=== PATIENT | female | born 1980 | race Caucasian/White ===

== ENCOUNTER 2016-11-16 21:21 | Inpatient (IN) | payer MEDICAID, OTHER ==
[~2016-11-16] VITALS: Ht 160 cm; Wt 65.5 kg
[~2016-11-16 21:21] MED LIST: CEPH-443 PO; FAMO-96 PO; FERR324T4 PO; FERR325C PO; OMEP20CA9 PO
[2016-11-16 21:23] VITALS: Ht 160 cm; Wt 65.5 kg
[2016-11-16] MEDS ORDERED: ONDANSETRON (ODT) 4 MG TAB ODT STA (22:22)
--- NOTE | 2016-11-16 22:26 | ERD ---
ER Documentation Chief Complaint Date/Time DATE: 11/16/16 TIME: 22:24 Chief Complaint ABD PAIN SINCE LAST NIGHT WITH NAUSEA HPI 36-year-old female presented emergency department for abdominal pain that started last night. Nauseous but no vomiting. Last bowel movement was yesterday and it was normal. Also reports generalized weakness. Last menstrual period: October 09, 2016. A0 Denies headache, loss of consciousness, dizziness, blurry vision, changes in vision, photophobia, facial pain, ear pain, throat pain, difficulty swallowing, neck pain, shoulder pain, chest pain, cough, hemoptysis, loss of appetite, nausea, vomiting, hematochezia, diarrhea, constipation, urinary symptoms, hematuria, , the possibility of being , bladder and bowel incontinences, extremity weakness, extremity tenderness, numbness or tingling sensation, difficulty walking, recent travel, recent exposure to illness, recent antibiotic use in the last 3 months, fever, chills. No known drug allergies. No past medical history. Not taking any prescription and medications at home. Works at [employer]. Denies smoking, use of alcohol, use of illegal drugs. ROS All systems reviewed and are negative except as per history of present illness. Medications Home Meds Active Scripts Ferrous Sulfate (Ferrous Sulfate) 324 Mg Tablet., 324 MG PO DAILY, #90 Prov:STEPHON PEREIRA PA-C 03/03/16 Cephalexin* (Keflex*) 500 Mg Capsule, 500 MG PO BID for 5 Days, CAP Prov:STEPHON PEREIRA PA-C 03/03/16 Omeprazole* (Prilosec*) 20 Mg Capsule., 20 MG PO BID for 30 Days, CAP Prov:LEXIE OSEGUERA NP 07/03/15 Famotidine* (Pepcid*) 20 Mg Tablet, 20 MG PO BID for 4 Days, TAB Prov:LEXIE OSEGUERA NP 07/03/15 Ferrous Sulfate (Iron) 325 Mg Capsr, 325 MG PO TID for 30 Days Prov:LEXIE OSEGUERA NP 07/03/15 Allergies Allergies: Coded Allergies: No Known Allergy (Unverified , 03/03/16) PMhx/Soc History of Surgery: No Anesthesia Reaction: No Hx Neurological Disorder: No Hx Respiratory Disorders: No Hx Cardiac Disorders: No Hx Psychiatric Problems: No Hx Alcohol Use: No Hx Substance Use: No Hx Tobacco Use: No Smoking Status: Never smoker Physical Exam Vitals Vital Signs Date Time Temp Pulse Resp B/P Pulse Ox O2 Delivery O2 Flow Rate FiO2 11/16/16 21:23 98.8 98 18 148/72 98 Physical Exam CONSTITUTIONAL: Well-appearing; well-nourished; in no apparent distress. HEAD: Normocephalic; atraumatic. EYES: Conjunctiva clear, sclera non-icteric, EOM intact. PERRL Ears: Hearing intact. EACs clear, TMs non-bulging, non-inflamed, translucent & mobile, ossicles normal appearance, No obstructions, no erythema, no discharges Nose: No obstructions. No polyps. No external lesions. Mucosa non-inflamed. No external lesions, septum and turbinates normal. No rhinorrhea. No discharges. Frontal sinus is non-tender to palpation. Maxillary sinus is non-tender to palpation. MOUTH: Moist mucous membranes, no lesion, no obstructions, no vesicles, no thrush, patent airway Throat: Uvula in midline. Right tonsil is +1 with no erythema, no exudate. Left tonsil is +1 with no erythema, no exudate. Tolerating secretions well. Good gag reflex. Patent airway. Neck: Supple, without lesions, bruits, or adenopathy. No mass. Thyroid non- enlarged and non-tender to palpation. CHEST: Symmetrical chest. Respirations even and not labored. No retractions noted. CARDIOVASCULAR: Normal S1, S2. RRR. No murmurs, gallops. RESPIRATORY: Normal chest excursion with respiration; breath sounds clear and equal bilaterally; no wheezes, rhonchi, or rales. Breathing even and unlabored. Speaking in clear, full, and complete sentences w/ ease. ABDOMEN: Normal bowel sounds normal. Soft, round, non-distended, non-guarding, no tenderness, no rebound, no organomegaly, no masses, no pulsating abdominal mass. No hernia. No peritoneal signs. : No CVA tenderness. Pelvic area tenderness on palpation. BACK: Symmetrical shoulder. Spine is midline without deformity, tenderness. No evidence of trauma or deformity. PELVIS: Stable pelvis. No evidence of trauma or deformity. MUSCULOSKELETAL: Normal gait and station. No misalignment, asymmetry, crepitation, defects, tenderness, masses, effusions, decreased range of motion, instability, atrophy or abnormal strength or tone in the head, neck, spine, ribs , pelvis or extremities. No calf tenderness. NEUROVASCULAR: Distal pulses are present. Pedal pulse are present, equal, and normal. Capillary refills are < 2 seconds. NEUROLOGIC: Alert and oriented x4. Speaks full and clear sentences. Cranial Nerves II-XII normal. Sensation to pain, touch, and proprioception normal. Grossly unremarkable. No neurologic deficits. Romberg test is negative. PSYCHOLOGICAL: The patients mood and manner are appropriate. No hallucinations , delusions. Not SI. Not HI. Has the capacity to decide for self SKIN: Skin appears pale for age and ethnicity; warm; dry; good turgor; no apparent lesions or exudates. No rashes, hives, discoloration. Intact. No signs of dehydration. No skin tenting. Result Diagram: 11/16/16223911/16/162239 Results 24 hrs Laboratory Tests Test 11/16/16 22:40 White Blood Count 7.910^3/ul Red Blood Count 4.0310^6/ul Hemoglobin 6.7g/dl Hematocrit 26.0% Mean Corpuscular Volume 64.5fl Mean Corpuscular Hemoglobin 16.6pg Mean Corpuscular Hemoglobin Concent 25.8g/dl Red Cell Distribution Width 19.2% Platelet Count 20162^3/UL Mean Platelet Volume 9.6fl Neutrophils % 48.4% Lymphocytes % 39.2% Monocytes % 8.5% Eosinophils % 3.2% Basophils % 0.4% Nucleated Red Blood Cells % 0.0/100WBC Neutrophils # 3.810^3/ul Lymphocytes # 3.110^3/ul Monocytes # 0.710^3/ul Eosinophils # 0.310^3/ul Basophils # 0.010^3/ul Nucleated Red Blood Cells # 0.010^3/ul Urine Color STRAW Urine Clarity CLEAR Urine pH 7.0 Urine Specific [place] 1.013 Urine Ketones NEGATIVEmg/dL Urine Nitrite NEGATIVEmg/dL Urine Bilirubin NEGATIVEmg/dL Urine Urobilinogen NEGATIVEmg/dL Urine Leukocyte Esterase NEGATIVELeu/ul Urine Microscopic RBC 0/HPF Urine Microscopic WBC 0/HPF Urine Hemoglobin 1+mg/dL Urine Glucose NEGATIVEmg/dL Urine Total Protein NEGATIVEmg/dl Sodium Level 143mmol/L Potassium Level 3.6mmol/L Chloride Level 102mmol/L Carbon Dioxide Level 25mmol/L Anion Gap 20 Blood Urea Nitrogen 9mg/dl Creatinine 0.54mg/dl Glucose Level 86mg/dl Calcium Level 9.7mg/dl Total Bilirubin 0.1mg/dl Direct Bilirubin 0.00mg/dl Indirect Bilirubin 0.1mg/dl Aspartate Amino Transf (AST/SGOT) 25IU/L Alanine Aminotransferase (ALT/SGPT) 25IU/L Alkaline Phosphatase 51IU/L Total Protein 8.5g/dl Albumin 4.8g/dl Globulin 3.70g/dl Albumin/Globulin Ratio 1.29 Amylase Level 87U/L Lipase 99U/L Serum HCG, Qualitative NEGATIVE Current Medications Medications (Trade) Dose Ordered Sig/Jorgito Route PRN Reason Start Time Stop Time Status Last Admin Dose Admin Ondansetron HCl (Zofran Odt) 4 mg ONCE STAT ODT 11/16/16 22:22 11/16/16 22:25 DC 11/16/16 22:44 Procedures/MDM Examination: Please see physical examination. Disease process, medical treatment was explained to the patient and family member. They verbalized understanding and agreed with the diagnostic tests, medical treatment, and follow-up care. Radiology: Pelvic ultrasound Impression: Unremarkable pelvic ultrasound. Blood works: Hemoglobin of 6.7 and hematocrit of 26.0. POC urine : Negative. Urinalysis: Reviewed. Culture urine: Awaiting for results. Treatment: Re-evaluation: Denies headache, dizziness, blurry vision, neck pain, shoulder pain, chest pain, back pain, abdominal pain, nausea, vomiting. No episode of emesis in the emergency department. Alert and oriented 4. Speaks full and clear sentences. Respirations even and unlabored. Lung sounds clear to auscultation. Active bowel sounds. There is no right upper/right lower/ epigastric/left upper/left lower abdominal tenderness and light and deep palpation. Negative on Rovsings sign. Negative Trini sign. Able to jump 5 times without developing right-sided abdominal pain. No peritoneal signs. Ambulatory with steady gait. No neurovascular deficits. No neurological deficits. Consultation: None. Differential diagnosis: Appendicitis versus ovarian cyst rupture versus ovarian torsion versus ovarian cyst versus urinary tract infection Medical decision makin-year-old female presented emergency department for abdominal pain that started last night. Nauseous but no vomiting. Last bowel movement was yesterday and it was normal. Patient's complaint, patient history about her complaint, my physical findings, diagnostic test results, my reevaluation are consistent my final diagnosis of anemia. Patient stated that during her menstrual period, she had a heavy bleeding that lasted for 9 days. Also reports generalized weakness. Case was discussed with supervising emergency room physician, Dr. Bayron Vernon who agreed with my medical decision making to admit the patient. He also agreed to continue to care and processed admission. Departure Diagnosis: Primary Impression: Anemia Additional Impressions: Abdominal pain Weakness generalized MAXIMINO SOLOMON Nov 16, 2016 22:25
[2016-11-16 23:25] LABS: ADD SCAN DIFF NO
[2016-11-16 23:31] LABS: ABNORMAL IP MESSAGE 1; MEAN CORPUSCULAR HEMOGLOBIN 16.6 pg (29.0-33.0); MEAN CORPUSCULAR HGB CONC 25.8 g/dl (32.0-37.0); MEAN CORPUSCULAR VOLUME 64.5 fl (82.0-101.0); MEAN PLATELET VOLUME 9.6 fl (7.4-10.4); PLATELET COUNT 343 10^3/UL (140-415); RED BLOOD COUNT 4.03 10^6/ul (4.20-5.40); RED CELL DISTRIBUTION WIDTH 19.2 % (11.5-14.5)
[2016-11-16 23:46] LABS: ADD UMIC YES; UR ASCORBIC ACID NEGATIVE (NEGATIVE); UR BILIRUBIN (Dip) NEGATIVE (NEGATIVE); UR BLOOD (Dip) 1+ mg/dL (NEGATIVE); UR CLARITY CLEAR (CLEAR); UR COLOR STRAW (YELLOW); UR GLUCOSE (Dip) NEGATIVE (NEGATIVE); UR KETONES (Dip) NEGATIVE (NEGATIVE); UR LEUKOCYTE ESTERASE (Dip) NEGATIVE Leu/ul (NEGATIVE); UR NITRITE (Dip) NEGATIVE (NEGATIVE); UR RBC 0 /HPF (0-5); UR SPECIFIC GRAVITY (Dip) 1.013 (1.003-1.030); UR TOTAL PROTEIN (Dip) NEGATIVE (NEGATIVE); UR UROBILINOGEN (Dip) NEGATIVE (NEGATIVE)
[2016-11-16 23:52] LABS: HEMOGLOBIN 6.7 g/dl (12.0-16.0)
[2016-11-16 23:53] LABS: ALBUMIN 4.8 g/dl (3.3-4.9); ALBUMIN/GLOBULIN RATIO 1.29; BILIRUBIN,INDIRECT 0.1 mg/dl (0-1.1); BILIRUBIN,TOTAL 0.1 mg/dl (0.2-1.3); CALCIUM 9.7 mg/dl (8.4-10.2); CREATININE 0.54 mg/dl (0.44-1.00); POTASSIUM 3.6 mmol/L (3.5-5.1); TOTAL PROTEIN 8.5 g/dl (6.1-8.1)
--- NOTE | 2016-11-17 00:01 | RADRPT ---
PROCEDURE: US Pelvis. CLINICAL INDICATION: Pelvic pain TECHNIQUE: Multiple sonographic images of the pelvis were obtained utilizing a transabdominal tech nique. The images were reviewed on a PACS workstation. COMPARISON: None available FINDINGS: Uterus: Normal in size, contour and echogenicity with no evidence for myometrial masses. Size is est imated at a 0.5 x 5.3 x 4.9 cm. Cervix: No abnormalities of significance are seen. Endometrium: Normal in thickness; 9.0 mm. Right ovary / adnexa: Normal in size estimated at 3.6 x 2.7 x 2.4 cm. No evidence for masses, norm al blood flow on Doppler interrogation. Left ovary/adnexa: Normal in size estimated at 3.5 x 2.8 x 2.1 cm. No evidence for solid masses, no rmal blood flow on Doppler interrogation. Cul-de-sac: No evidence of free fluid. RPTAT:HJJR IMPRESSION: Unremarkable pelvic ultrasound. Physician Shen Date Time Electronically viewed and signed by Physician Shen on 11/17/2016 00:01 /
[2016-11-17 01:41] VITALS: TEMP 98.1
[2016-11-17] MEDS ORDERED: ONDANSETRON 4 MG INJ IV PRN (03:30)
[2016-11-17] MEDS ORDERED: ACETAMINOPHEN 325 MG TAB PO PRN (03:30)
[2016-11-17] MEDS ORDERED: NACL 0.9% 3 ML SYG IV SCH (03:30)
[2016-11-17 04:16] LABS: EOSINOPHILS # 0.1 10^3/ul (0.0-0.5); LYMPHOCYTES # 3.6 10^3/ul (0.8-2.9); MONOCYTE # 0.2 10^3/ul (0.3-0.9); NEUTROPHIL # 4.1 10^3/ul (1.6-7.5)
[2016-11-17] MEDS: PANTOPRAZOLE 40 MG INJ IV SCH (06:40)
--- NOTE | 2016-11-17 06:52 | HP ---
Date/Time of Note Date/Time of Note DATE: 11/17/16 TIME: 06:46 Assessment/Plan VTE Prophylaxis VTE Prophylaxis Intervention: SCD's Lines/Catheters IV [facility]from [facility] Saline Lock Assessment/Plan Chief Complaint/Hosp Course This is a 36-year-old female being admitted to the telemetry floor for: #1 symptomatic anemia: Patient initially presented with hemoglobin of 6.7. She has a history of irregular irregular and heavy periods. Ultrasound of the pelvis is unremarkable. She received 2 units of PRBCs in the ED. negative beta- hCG #2 abdominal pain: Ultrasound of the pelvis was unremarkable. Patient does still have epigastric pain to palpation. Will order CT scan of the abdomen pelvis to further evaluate. She denies any hematemesis or blood per rectum. Will consider GI consultation if CT of the abdomen pelvis is negative. Patient also will likely need outpatient follow-up with OB regarding irregular periods. Negative beta-hCG #3 anemia: Patient is on outpatient iron supplements. Patient however does not know the cause of her anemia though she does state that she has known to have heavy periods but has not been further evaluated. #4 DVT GI prophylaxis: SCDs, Protonix Further treatment strategy will be implemented as per the clinical course Problems: HPI/ROS Admit Date/Time Admit Date/Time Hx of Present Illness 36-year-old female presented emergency department for abdominal pain that started last night. Her abdomen did feel war, denies any fevers. Nauseous but no vomiting. Last bowel movement was yesterday and it was normal. Also reports generalized weakness. Last menstrual period: October 09, 2016. A0 Denies headache, loss of consciousness, dizziness, blurry vision, changes in vision, photophobia, facial pain, ear pain, throat pain, difficulty swallowing, neck pain, shoulder pain, chest pain, cough, hemoptysis, loss of appetite, nausea, vomiting, hematochezia, diarrhea, constipation, urinary symptoms, hematuria, , the possibility of being , bladder and bowel incontinences, extremity weakness, extremity tenderness, numbness or tingling sensation, difficulty walking, recent travel, recent exposure to illness, recent antibiotic use in the last 3 months, fever, chills. ROS Const: As per HPI Eyes : No pain discharge or redness or change in visual acuity ENT: No pain, sore throat, congestion, congestion, dysphagia or discharge Respiratory: No shortness of breath, cough, sputum, wheezing, or pleuritic pain Cardiovascular: No chest pain, palpitation, PND, or edema GI : As per Genitourinary: No dysuria, hematuria, flank pain , discharge or CVA tenderness Musculoskeletal: No joint pain, back pain, neck pain, restricted range of motion in neck or joints Skin: No rash, bruising or hives Neuro: No headache, dizziness, syncope, seizure, focal weakness Endocrine: No polyuria, polydipsia, temperature intolerance Psych: No hallucination, depression, anxiety or suicidal ideation PMH/Family/Social Past Medical History Anemia does report heavy periods and irregular menstrual cycles Past Surgical History Past Surgical Hx: no surgical history Family History Significant Family History: no pertinent family hx Social History Alcohol Use: none Smoking Status: Never smoker Drug Use: none Exam/Review of Systems Vital Signs Vitals Vital Signs Date Time Temp Pulse Resp B/P Pulse Ox O2 Delivery O2 Flow Rate FiO2 11/17/16 01:41 98.1 78 18 119/49 100 Nasal Cannula 2.0 Exam Exam General: Patient is well-developed well-nourished The patient is alert oriented -3 lying comfortably in bed. HEENT: Atraumatic, normocephalic. The pupils are equal, round and reactive. Extraocular motor are intact Neck: Supple with full range of motion. No rigidity or meningismus Chest: Nontender Lungs: Clear to auscultation bilaterally no crackles rales or wheezing Heart: Normal S1-S2, Regular rhythm and rate. No murmur, S3, or S4 Abdomen: Soft, mild tenderness to palpation over the epigastric region, normal bowel sounds Extremities: Normal to inspection, no edema no cyanosis Neurologic: Normal mental status, speech normal, cranial nerves II through XII are intact, motor and sensory are intact, no focal weakness Labs Result Diagram: 11/16/16223911/16/162239 Medications Medications Current Medications Ondansetron HCl (Zofran Inj) 4 mg Q6H PRN IV NAUSEA AND/OR VOMITING; Start 02/24 at 03:30 Acetaminophen (Tylenol Tab) 650 mg Q6H PRN PO PAIN LEVEL 1-3 OR FEVER; Start at 03:30 Pantoprazole (Protonix Iv) 40 mg DAILY@06 IV Last administered on 11/17/16 06: 40; Admin Dose 40 MG; Start 11/17/16 at 06:00 Ferrous Sulfate (Ferrous Sulfate (Ec)) 325 mg TID PO ; Start 11/17/16 at 09:00 BARBARA UMAÑA Nov 17, 2016 06:52
--- NOTE | 2016-11-17 08:01 | RADRPT ---
PROCEDURE: CT Abdomen and pelvis without contrast. CLINICAL INDICATION: Epigastric pain, symptomatic anemia TECHNIQUE: CT scan of the abdomen and pelvis with contrast was performed on a multidetector high-r esolution CT scan. . Coronal and sagittal reformatted images were obtained from the axial source i mages. Standard CT scan of the abdomen pelvis without contrast protocols were performed. The total exam CTDI equals 10.22 mGy and the total exam DLP equals 546.49 mGy-cm. One or more of the following dose reduction techniques were used: - Automated exposure control. - Adjustment of the mA and/or kV according to patient size. Use of iterative reconstruction technique. COMPARISON: Abdominal ultrasound 07/03/2015 and pelvic ultrasound 11/16/2016 FINDINGS: There are multiple tiny 1 mm non-obstructing calcified calculi involving the right superior mid and inferior right kidney. There is a tiny 1-2 mm non-obstructing inferior left renal calcified calculu s. There is no hydronephrosis bilaterally. No intra renal masses bilaterally. There are no calcif ied ureteral calculi or urinary bladder calcified calculi. Urinary bladder is partially contracted. Urinary bladder wall thickening is likely due to lack of optimal distension however cystitis canno t be excluded. The appendix is unremarkable. The stomach, small bowel and large bowel are unremarkable. Negative for intra-abdominal free air, free fluid, abscesses or lymphadenopathy. The uterus is ante verted but otherwise unremarkable. No adnexal masses. Liver spleen pancreas adrenal glands and gallbladder are unremarkable. No evidence biliary ductal d ilation. The aorta is unremarkable. There is a small fat containing umbilical hernia but no herniated bowel or strangulation. Remainder of abdominal pelvic king are unremarkable. Lung bases are clear. Minimal degenerative changes of the lower thoracic and lumbar spine without a cute osseous findings are osteoblastic/osteolytic lesions. IMPRESSION: 1. Multiple tiny 1 mm non-obstructing right renal calcified calculi and tiny 1-2 mm non-obstructing left renal calcified calculus as described above. No other urinary calcified calculi or obstructiv e uropathy. 2. Urinary bladder wall thickening likely due to lack of optimal distension however cystitis cannot be excluded. 3. Small fat containing umbilical hernia but no herniated hour strangulation. 4. Negative for intra-abdominal free air fluid abscesses or lymphadenopathy. No gastrointestinal d isease demonstrated. RPTAT:AAJJ Stephania Polo Physician Date Time Electronically viewed and signed by Stephania Polo Physician on 11/17/2016 08:01 NICK/
[2016-11-17] MEDS ORDERED: NON-FORMULARY/PATIENT OWN MED (Ferrous Sulfate (Iron) 325 MG) PO SCH (09:00)
[2016-11-17 09:30] VITALS: BP 111/59; PULSE 59; RESP 18
[2016-11-17] MEDS: FERROUS SULFATE (EC) 325 MG TAB PO SCH ×3 (10:21→20:30)
[2016-11-17] MEDS: HYDROCODONE/APAP (5/325) TAB PO PRN ×2 (10:22→16:17)
--- NOTE | 2016-11-17 10:49 | PN ---
Date/Time of Note Date/Time of Note DATE: 11/17/16 TIME: 10:44 Assessment/Plan VTE Prophylaxis VTE Prophylaxis Intervention: SCD's Lines/Catheters IV Catheter Type (from Nrs): Saline Lock Assessment/Plan Assessment/Plan 36 yo F presents with symptomatic blood loss anemia. Etio is dam tender assistant source (most likely given h/o heavy periods) v GI source v other PLAN dam tender assistant to see today fobt to eval for occult GI blood loss post transfusion CBC microcytosis suggestive of SUNSHINE. Will obtain iron studies to confirm bilis nl, makes hemolysis less likely other cell lines preserved so do not suspect primary bone marrow mediated process if Hgb not stable 24 hours after transfusion, consider further heme eval (ie electrophoresis for thalassemia) Subjective 24 Hr Interval Summary Free Text/Dictation Pt got 1 unit prbcs overnight. States she has a long history of heavy periods but has never discussed this with her PCP or seen a harness placer for this. Denies any hematochezia, BRBPR, or heavy NSAID use. Exam/Review of Systems Vital Signs Vitals Vital Signs Date Time Temp Pulse Resp B/P Pulse Ox O2 Delivery O2 Flow Rate FiO2 11/17/16 09:30 98.5 59 18 111/59 99 Room Air 11/17/16 01:41 2.0 Exam nad, sitting at side of bed no mrg lungs clear abd soft no rashes post transfusion hgb ordered pelvic US and CT A/P nondiagnostic Results Result Diagram: 11/16/16223911/16/162239 Results 24 hrs Laboratory Tests Test 11/16/16 22:40 White Blood Count 7.9 Red Blood Count 4.03 L Hemoglobin 6.7 *L Hematocrit 26.0 L Mean Corpuscular Volume 64.5 L Mean Corpuscular Hemoglobin 16.6 L Mean Corpuscular Hemoglobin Concent 25.8 L Red Cell Distribution Width 19.2 H Platelet Count 343 Mean Platelet Volume 9.6 # Neutrophils % 52.0 Lymphocytes % 45.0 Monocytes % 2.0 Eosinophils % 1.0 Basophils % Nucleated Red Blood Cells % Neutrophils # 4.1 Lymphocytes # 3.6 H Monocytes # 0.2 L Eosinophils # 0.1 Basophils # Nucleated Red Blood Cells # Urine Color STRAW Urine Clarity CLEAR Urine pH 7.0 Urine Specific [place] 1.013 Urine Ketones NEGATIVE Urine Nitrite NEGATIVE Urine Bilirubin NEGATIVE Urine Urobilinogen NEGATIVE Urine Leukocyte Esterase NEGATIVE Urine Microscopic RBC 0 Urine Microscopic WBC 0 Urine Hemoglobin 1+ H Urine Glucose NEGATIVE Urine Total Protein NEGATIVE Sodium Level 143 Potassium Level 3.6 Chloride Level 102 Carbon Dioxide Level 25 Anion Gap 20 H Blood Urea Nitrogen 9 Creatinine 0.54 Glucose Level 86 Calcium Level 9.7 Total Bilirubin 0.1 L Direct Bilirubin 0.00 Indirect Bilirubin 0.1 Aspartate Amino Transf (AST/SGOT) 25 Alanine Aminotransferase (ALT/SGPT) 25 Alkaline Phosphatase 51 Total Protein 8.5 H Albumin 4.8 Globulin 3.70 H Albumin/Globulin Ratio 1.29 Amylase Level 87 Lipase 99 Serum HCG, Qualitative NEGATIVE Medications Medications Current Medications Ondansetron HCl (Zofran Inj) 4 mg Q6H PRN IV NAUSEA AND/OR VOMITING; Start 02/24 at 03:30 Acetaminophen (Tylenol Tab) 650 mg Q6H PRN PO PAIN LEVEL 1-3 OR FEVER; Start at 03:30 Pantoprazole (Protonix Iv) 40 mg DAILY@06 IV Last administered on 11/17/16 06: 40; Admin Dose 40 MG; Start 11/17/16 at 06:00 Ferrous Sulfate (Ferrous Sulfate (Ec)) 325 mg TID PO Last administered on 10:21; Admin Dose 325 MG; Start 11/17/16 at 09:00 Acetaminophen/ Hydrocodone Bitart (Cranberry (5/325)) 1 tab Q4H PRN PO PAIN LEVEL 6 -10 Last administered on 11/17/16 10:22; Admin Dose 1 TAB; Start 11/17/16 at 10 :00 OTILIA GAITAN MD Nov 17, 2016 10:49
[2016-11-17 11:53] LABS: ADD SCAN DIFF NO
[2016-11-17 12:07] LABS: ABNORMAL IP MESSAGE 1; BASOPHILS % 0.7 % (0.0-2.0); EOSINOPHILS # 0.2 10^3/ul (0.0-0.5); HEMATOCRIT 28.3 % (37.0-47.0); HEMOGLOBIN 7.7 g/dl (12.0-16.0); LYMPHOCYTES # 2.6 10^3/ul (0.8-2.9); LYMPHOCYTES % 43.2 % (15.0-51.0); MEAN CORPUSCULAR HEMOGLOBIN 18.2 pg (29.0-33.0); MEAN CORPUSCULAR HGB CONC 27.2 g/dl (32.0-37.0); MEAN CORPUSCULAR VOLUME 66.7 fl (82.0-101.0); MEAN PLATELET VOLUME 9.7 fl (7.4-10.4); MONOCYTE # 0.5 10^3/ul (0.3-0.9); MONOCYTES % 7.6 % (0.0-11.0); NEUTROPHIL # 2.7 10^3/ul (1.6-7.5); NEUTROPHILS % 45.2 % (39.0-77.0); PLATELET COUNT 301 10^3/UL (140-415); RED BLOOD COUNT 4.24 10^6/ul (4.20-5.40); RED CELL DISTRIBUTION WIDTH 21.9 % (11.5-14.5)
[2016-11-17 12:14] LABS: IRON 31 ug/dl (35-150)
[2016-11-17 12:23] LABS: TOTAL IRON BINDING CAPACITY 469 ug/dl (241-421)
--- NOTE | 2016-11-17 14:57 | QN ---
Documentation Comment pt feeling better currently no bleeding' vss exam deferred us wnl a/p 36 with chronic menorrhagia -sp prbc and now stable pt instructed she will need full [employer] evaluation with her bounty hunter as an outpatient. instructed her on importance of fu with her executive director executive director cleared TONG TAMAYO MD Nov 17, 2016 14:57
[2016-11-17 19:57] VITALS: BP 103/55; RESP 14
[2016-11-18] MEDS: PANTOPRAZOLE 40 MG INJ IV SCH (05:08)
[2016-11-18 05:17] LABS: ADD SCAN DIFF NO
[2016-11-18 05:23] LABS: ABNORMAL IP MESSAGE 1; BASOPHIL # 0.1 10^3/ul (0.0-0.1); BASOPHILS % 0.7 % (0.0-2.0); EOSINOPHILS # 0.2 10^3/ul (0.0-0.5); EOSINOPHILS % 3.4 % (0.0-7.0); HEMATOCRIT 29.3 % (37.0-47.0); HEMOGLOBIN 7.9 g/dl (12.0-16.0); LYMPHOCYTES # 2.4 10^3/ul (0.8-2.9); LYMPHOCYTES % 35.8 % (15.0-51.0); MEAN CORPUSCULAR HEMOGLOBIN 18.2 pg (29.0-33.0); MEAN CORPUSCULAR VOLUME 67.7 fl (82.0-101.0); MEAN PLATELET VOLUME 9.8 fl (7.4-10.4); MONOCYTE # 0.6 10^3/ul (0.3-0.9); MONOCYTES % 8.2 % (0.0-11.0); NEUTROPHIL # 3.5 10^3/ul (1.6-7.5); NEUTROPHILS % 51.6 % (39.0-77.0); PLATELET COUNT 298 10^3/UL (140-415); RED BLOOD COUNT 4.33 10^6/ul (4.20-5.40); RED CELL DISTRIBUTION WIDTH 21.5 % (11.5-14.5); WHITE BLOOD COUNT 6.8 10^3/ul (4.8-10.8)
[2016-11-18 07:28] VITALS: BP_SYST 101; BP_SYST 138; BP_DIAS 55; RESP 19
--- NOTE | 2016-11-18 08:17 | PDOCDIS ---
Discharge Instructions CONDITION Patient Condition: Good HOME CARE INSTRUCTIONS: Diet Instructions: Regular ACTIVITY: Activity Restrictions: No Restrictions FOLLOW UP/APPOINTMENTS Follow-up Plan Follow up with your field foreman this week to discuss your heavy periods. If you do not have a field foreman, please contact the one who saw you in the hospital: Dr Jae Mg Office Address [address] [facility] Labor [place] [address] Office OTILIA GAITAN MD Nov 18, 2016 08:17
--- NOTE | 2016-11-18 08:20 | DS ---
Date/Time of Note Date/Time of Note DATE: 11/18/16 TIME: 08:18 Discharge Summary Admission/Discharge Info Admit Date/Time Nov 17, 2016 at 01:17 Discharge Date/Time Patient Condition: Good Consults gynecology Procedures 7.9 pelvic US: Unremarkable pelvic ultrasound. 7.10: IMPRESSION: 1. Multiple tiny 1 mm non-obstructing right renal calcified calculi and tiny 1- 2 mm non-obstructing left renal calcified calculus as described above. No other urinary calcified calculi or obstructive uropathy. 2. Urinary bladder wall thickening likely due to lack of optimal distension however cystitis cannot be excluded. 3. Small fat containing umbilical hernia but no herniated hour strangulation. 4. Negative for intra-abdominal free air fluid abscesses or lymphadenopathy. No gastrointestinal disease demonstrated. Hx of Present Illness 36-year-old female presented emergency department for abdominal pain that started last night. Her abdomen did feel war, denies any fevers. Nauseous but no vomiting. Last bowel movement was yesterday and it was normal. Also reports generalized weakness. Last menstrual period: October 09, 2016. A0 Denies headache, loss of consciousness, dizziness, blurry vision, changes in vision, photophobia, facial pain, ear pain, throat pain, difficulty swallowing, neck pain, shoulder pain, chest pain, cough, hemoptysis, loss of appetite, nausea, vomiting, hematochezia, diarrhea, constipation, urinary symptoms, hematuria, , the possibility of being , bladder and bowel incontinences, extremity weakness, extremity tenderness, numbness or tingling sensation, difficulty walking, recent travel, recent exposure to illness, recent antibiotic use in the last 3 months, fever, chills. Hospital Course Pt transfused 1 unit of pRBCs with appropriate bump in hgb. Pt seen by research and development specialist service and outpatient follow up was advised. No changes from admit meds. Home Meds Active Scripts Ferrous Sulfate (Ferrous Sulfate) 324 Mg Tablet., 324 MG PO DAILY, #90 Prov:STEPHON PEREIRA PA-C 03/03/16 Cephalexin* (Keflex*) 500 Mg Capsule, 500 MG PO BID for 5 Days, CAP Prov:STEPHON PEREIRA PA-C 03/03/16 Omeprazole* (Prilosec*) 20 Mg Capsule., 20 MG PO BID for 30 Days, CAP Prov:LEXIE OSEGUERA NP 07/03/15 Famotidine* (Pepcid*) 20 Mg Tablet, 20 MG PO BID for 4 Days, TAB Prov:LEXIE OSEGUERA NP 07/03/15 Ferrous Sulfate (Iron) 325 Mg Capsr, 325 MG PO TID for 30 Days Prov:LEXIE OSEGUERA NP 07/03/15 Follow-up Plan gynecology within 7 days Primary Care Provider Not On Staff Doctor Time spent on discharge: > 30 minutes Pending Labs Laboratory Tests Test 11/17/16 11:15 11/18/16 04:38 11/18/16 05:48 White Blood Count 6.010^3/ul (4.8-10.8) 6.810^3/ul (4.8-10.8) Red Blood Count 4.2410^6/ul (4.20-5.40) 4.3310^6/ul (4.20-5.40) Hemoglobin 7.7g/dl (12.0-16.0) 7.9g/dl (12.0-16.0) Hematocrit 28.3% (37.0-47.0) 29.3% (37.0-47.0) Mean Corpuscular Volume 66.7fl (82.0-101.0) 67.7fl (82.0-101.0) Mean Corpuscular Hemoglobin 18.2pg (29.0-33.0) 18.2pg (29.0-33.0) Mean Corpuscular Hemoglobin Concent 27.2g/dl (32.0-37.0) 27.0g/dl (32.0-37.0) Red Cell Distribution Width 21.9% (11.5-14.5) 21.5% (11.5-14.5) Platelet Count 90658^3/UL (140-415) 77703^3/UL (140-415) Mean Platelet Volume 9.7fl (7.4-10.4) 9.8fl (7.4-10.4) Neutrophils % 45.2% (39.0-77.0) 51.6% (39.0-77.0) Lymphocytes % 43.2% (15.0-51.0) 35.8% (15.0-51.0) Monocytes % 7.6% (0.0-11.0) 8.2% (0.0-11.0) Eosinophils % 3.0% (0.0-7.0) 3.4% (0.0-7.0) Basophils % 0.7% (0.0-2.0) 0.7% (0.0-2.0) Nucleated Red Blood Cells % 0.0/100WBC (0.0-0.0) 0.0/100WBC (0.0-0.0) Neutrophils # 2.710^3/ul (1.6-7.5) 3.510^3/ul (1.6-7.5) Lymphocytes # 2.610^3/ul (0.8-2.9) 2.410^3/ul (0.8-2.9) Monocytes # 0.510^3/ul (0.3-0.9) 0.610^3/ul (0.3-0.9) Eosinophils # 0.210^3/ul (0.0-0.5) 0.210^3/ul (0.0-0.5) Basophils # 0.010^3/ul (0.0-0.1) 0.110^3/ul (0.0-0.1) Nucleated Red Blood Cells # 0.010^3/ul (0.0-0.0) 0.010^3/ul (0.0-0.0) Thyroid Stimulating Hormone (TSH) 3.820MIU/L (0.465-4.680) Lab Scanned Report BLOOD [id number] OTIILA GAITAN MD Nov 18, 2016 08:20
[2016-11-18] MEDS: FERROUS SULFATE (EC) 325 MG TAB PO SCH ×2 (08:56→13:33)
[2016-11-18 13:14] LABS: WHITE BLOOD COUNT 7.9 10^3/ul (4.8-10.8)
== END 2016-11-18 13:53 | disposition home or self-care (01) | DRG 812 ==
LOC: FTE 21:21 → MS1 11-17 01:17
PROVIDERS: ADMIT Family Medicine; ATTEND Family Medicine
PROC: 30233N1 Transfusion of Nonautologous Red Blood Cells into Peripheral Vein, Percutaneous Approach (ICD-10-PCS; principal; 2016-11-17)
DX: D64.9 Anemia, unspecified (principal); N20.0 Calculus of kidney; K42.9 Umbilical hernia without obstruction or gangrene
CPT/HCPCS: 36415; 36430; 74176; 76856; 80053; 81001; 82150; 83036; 83540; 83690; 84443; 84703; 85025; 86850; 86900; 86901; 86920; 96374; C9113; P9016

== ENCOUNTER 2017-02-10 17:26 | Emergency (ER) | END 2017-02-10 22:32 | disposition home or self-care (01) | DX: D64.9 Anemia, unspecified (principal); N93.8 Other specified abnormal uterine and vaginal bleeding; R00.2 Palpitations | CPT/HCPCS: 36415; 71010; 80053; 81001; 83690; 85025; 86850; 86870; 86900; 86901; 93005; 96360; 99285; J7030 ==

== ENCOUNTER 2018-02-25 14:01 | Emergency (ER) | END 2018-02-26 01:55 | disposition home or self-care (01) ==

== ENCOUNTER 2018-06-07 13:22 | Emergency (ER) | payer SELFPAY ==
[~2018-06-07] VITALS: Ht 157.5 cm; Wt 67.4 kg
[~2018-06-07 13:22] MED LIST changes: -CEPH-443 PO; +DOCU-144 PO; +FER325 PO; -FERR324T4 PO; -OMEP20CA9 PO; +TRAM50TA2 PO
[2018-06-07 13:42] VITALS: Ht 157.5 cm; Wt 67.4 kg
[2018-06-07] MEDS ORDERED: morphine 2 MG INJ IV STA (15:42)
[2018-06-07] MEDS ORDERED: ONDANSETRON 4 MG INJ IV STA (15:42)
[2018-06-07] MEDS ORDERED: FAMOTIDINE 20 MG INJ IV ONE (16:00)
[2018-06-07] MEDS ORDERED: ACET500C5 PO (17:40)
[2018-06-07] MEDS ORDERED: FAMO-96 PO (17:40)
[2018-06-07] MEDS ORDERED: TRAM50TA PO (17:44)
[2018-06-07] MEDS ORDERED: FER325 PO (17:45)
--- NOTE | 2018-06-07 17:52 | ERD ---
ER Documentation Chief Complaint Chief Complaint EPIGASTRIC RADIATING TO BREAST X5 DAYS HPI 37-year-old female presents with abdominal pain for last 5 days. She states that it is her left upper abdominal area and radiates to her chest. She describes as burning. She has a history of anemia due to heavy menstrual. She denies any fevers, vomiting, diarrhea, urinary complaints. She denies . ROS All systems reviewed and are negative except as per history of present illness. Medications Home Meds Active Scripts Ferrous Sulfate* (Ferrous Sulfate*) 325 Mg Tabec, 325 MG PO BID, #60 TAB Prov:RISSA RAMIREZ MD 06/07/18 Tramadol Hcl* (Ultram*) 50 Mg Tablet, 50 MG PO Q6H PRN for PAIN for 14 Days, TAB Prov:RISSA RAMIREZ MD 06/07/18 Famotidine* (Pepcid*) 20 Mg Tablet, 20 MG PO BID for 7 Days, #14 TAB Prov:RISSA RAMIREZ MD 06/07/18 Acetaminophen* (Tylophen*) 500 Mg Capsule, 1 CAP PO Q6H PRN for PAIN AND OR ELEVATED TEMP, #20 CAP Prov:RISSA RAMIREZ MD 06/07/18 Ferrous Sulfate* (Ferrous Sulfate*) 325 Mg Tabec, 325 MG PO DAILY, #30 TAB Prov:JAMES DAWKINS 02/25/18 Tramadol HCl (Tramadol HCl) 50 Mg Tablet, 50 MG PO Q4 PRN for PAIN, #20 TAB Prov:JAMES DAWKINS 02/25/18 Docusate Sodium* (Colace*) 100 Mg Capsule, 100 MG PO TID, #30 CAP Prov:PIERRE HELLER NP 02/10/17 Ferrous Sulfate* (Ferrous Sulfate*) 325 Mg Tabec, 325 MG PO BID, #60 TAB Prov:PIERRE HELLER NP 02/10/17 Famotidine* (Pepcid*) 20 Mg Tablet, 20 MG PO BID for 4 Days, TAB Prov:LEXIE OSEGUERA NP 07/03/15 Ferrous Sulfate (Iron) 325 Mg Capsr, 325 MG PO TID for 30 Days Prov:LEXIE OSEGUERA NP 07/03/15 Allergies Allergies: Coded Allergies: No Known Allergy (Unverified , 10/24/16) PMhx/Soc Medical and Surgical Hx: pt denies Surgical Hx History of Surgery: No Anesthesia Reaction: No Hx Neurological Disorder: No Hx Respiratory Disorders: No Hx Cardiac Disorders: No Hx Psychiatric Problems: No Hx Miscellaneous Medical Probl: Yes (Dysfunctional Uterine Bleed,Anemia) Hx Alcohol Use: No Hx Substance Use: No Hx Tobacco Use: No FmHx Family History: No diabetes, No coronary disease, No other Physical Exam Vitals Vital Signs Date Temp Pulse Resp B/P (MAP) Pulse Ox O2 O2 Flow FiO2 Time Delivery Rate 06/07/18 98.7 82 18 125/72 100 13:42 (89) Physical Exam Const: No acute distress Head: Atraumatic Eyes: Normal Conjunctiva ENT: Normal External Ears, Nose and Mouth. Neck: Full range of motion. No meningismus. Resp: Clear to auscultation bilaterally Cardio: Regular rate and rhythm, no murmurs Abd: Soft, normal tenderness left epigastric area and suprapubic area. No rebound. No tenderness McBurney's point no Gore sign., non distended. Normal bowel sounds Skin: No petechiae or rashes Back: No midline or flank tenderness Ext: No cyanosis, or edema Neur: Awake and alert Psych: Normal Mood and Affect Result Diagram: 06/07/18 1549 06/07/18 1549 Results 24 hrs Laboratory Tests Test 06/07/18 15:49 06/07/18 15:53 White Blood Count 8.4 10^3/ul Red Blood Count 4.12 10^6/ul Hemoglobin 7.1 g/dl Hematocrit 27.1 % Mean Corpuscular Volume 65.8 fl Mean Corpuscular Hemoglobin 17.2 pg Mean Corpuscular Hemoglobin Concent 26.2 g/dl Red Cell Distribution Width 16.6 % Platelet Count 375 10^3/UL Mean Platelet Volume 9.6 fl Immature Granulocytes % 0.400 % Neutrophils % 57.9 % Lymphocytes % 30.9 % Monocytes % 8.2 % Eosinophils % 2.1 % Basophils % 0.5 % Nucleated Red Blood Cells % 0.0 /100WBC Immature Granulocytes # 0.030 10^3/ul Neutrophils # 4.9 10^3/ul Lymphocytes # 2.6 10^3/ul Monocytes # 0.7 10^3/ul Eosinophils # 0.2 10^3/ul Basophils # 0.0 10^3/ul Nucleated Red Blood Cells # 0.0 10^3/ul Urine Color YELLOW Urine Clarity CLEAR Urine pH 5.0 Urine Specific [place] 1.014 Urine Ketones TRACE mg/dL Urine Nitrite NEGATIVE mg/dL Urine Bilirubin NEGATIVE mg/dL Urine Urobilinogen NEGATIVE mg/dL Urine Leukocyte Esterase NEGATIVE Elizabeth/ul Urine Hemoglobin NEGATIVE mg/dL Urine Glucose NEGATIVE mg/dL Urine Total Protein NEGATIVE mg/dl Sodium Level 141 mmol/L Potassium Level 4.1 mmol/L Chloride Level 100 mmol/L Carbon Dioxide Level 25 mmol/L Anion Gap 16 Blood Urea Nitrogen 10 mg/dl Creatinine 0.52 mg/dl Est Glomerular Filtrat Rate mL/min > 60 mL/min Glucose Level 90 mg/dl Calcium Level 9.5 mg/dl Total Bilirubin 0.2 mg/dl Direct Bilirubin 0.00 mg/dl Indirect Bilirubin 0.2 mg/dl Aspartate Amino Transf (AST/SGOT) 25 IU/L Alanine Aminotransferase (ALT/SGPT) 22 IU/L Alkaline Phosphatase 57 IU/L Total Protein 8.7 g/dl Albumin 4.5 g/dl Globulin 4.20 g/dl Albumin/Globulin Ratio 1.07 Lipase 77 U/L POC Beta HCG, Qualitative NEGATIVE Current Medications Medications Dose Sig/Jorgito Start Time Status Last (Trade) Ordered Route PRN Stop Time Admin Dose Reason Admin Morphine 2 mg ONCE STAT 06/07/18 DC 06/07/18 Sulfate IV 15:42 15:52 (morphine) 06/07/18 15:44 Ondansetron 4 mg ONCE STAT 06/07/18 DC 06/07/18 HCl (Zofran IV 15:42 15:52 Inj) 06/07/18 15:44 Famotidine 20 mg ONCE ONCE 06/07/18 DC 06/07/18 (Pepcid Iv) IV 16:00 15:52 06/07/18 16:01 Procedures/MDM HCG negative. Hemoglobin 7.1, otherwise CBC normal. CMP and lipase normal. Urine shows no significant acute abnormalities. Skin answered because of pain CT abdomen pelvis performed shows physiologic fluid in the pelvis otherwise no acute abnormal findings. Patient presents with mid epigastric pain radiating to the chest as well as lower abdominal pain of uncertain etiology for last few days. She has CT findings suggestive of possible ruptured ovarian cyst otherwise no findings of abscess, appendicitis, additional emergent identifiable causes of pain. She will be treated with a short course of tramadol, Tylenol, Pepcid and resume iron for her appears to be iron deficiency anemia. She has no signs or symptoms of symptomatic anemia. She will be discharged home with primary care follow-up this week and return precautions. The patient was stable with no new complaints during the ER course. Clinically, there is no current evidence to suggest meningitis, sepsis, acute abdomen, pneumonia, stroke, acute coronary syndrome, pulmonary embolism, aortic dissection or any other emergent condition appearing to require further evaluation or hospitalization. Patient counseled regarding my diagnostic impression and care plan. Prior to discharge all questions answered. Pt agrees with treatment plan and understands strict return precautions. Pt is instructed to follow up with primary care provider within 24-48 hours. Precautionary instructions provided including instructions to return to the ER if not improving or for any worsening or changing symptoms or concerns. Departure Diagnosis: Primary Impression: Anemia Anemia type: unspecified type Qualified Codes: D64.9 - Anemia, unspecified Additional Impression: Epigastric pain Condition: Stable Patient Instructions: Abdominal Pain, Anemia, Epigastric Pain (Uncertain Cause) Additional Instructions: tiene anemia. otro examines normal. posiblemente un cyste de ovario. Cheque otro vez con connelly doctor primario en el proximo nicolas or regresa para mas o nueva simptomas. RISSA RAMIREZ MD Jun 07, 2018 17:52
[2018-06-07 17:57] VITALS: BP 120/68; PULSE 78; RESP 20
== END 2018-06-07 18:07 | disposition home or self-care (01) ==
LOC: FTE 13:22
DX: D64.9 Anemia, unspecified (principal)
CPT/HCPCS: 36415; 74176; 80053; 81003; 81025; 83690; 85025; 96374; 96375; 99285; J2270; J2405

== ENCOUNTER 2018-11-02 12:36 | Emergency (ER) | payer SELFPAY ==
[~2018-11-02] VITALS: Ht 157.5 cm; Wt 66.4 kg
[~2018-11-02 12:36] MED LIST changes: +ACET500C5 PO; +TRAM50TA PO
[2018-11-02 12:47] VITALS: Ht 157.5 cm; Wt 66.4 kg
[2018-11-02] MEDS ORDERED: ALBU18HF INHALATION (15:19)
[2018-11-02] MEDS ORDERED: BENZ200C68 PO (15:19)
[2018-11-02] MEDS ORDERED: AZIT250T PO (15:19)
--- NOTE | 2018-11-02 17:04 | ERD ---
ER Documentation Chief Complaint Chief Complaint cough ,chest congestion x 1 month HPI 38-year-old female with no significant past medical history presenting to the emergency department complaining of intermittent cough for the past 2 weeks. Symptoms are worse at night and alleviated with [id number] medication. She denies any fevers, night sweats, hemoptysis, or other symptoms at this time. Symptoms are currently mild in severity. ROS All systems reviewed and are negative except as per history of present illness. Medications Home Meds Active Scripts Azithromycin* (Zithromax*) 250 Mg Tablet, 250 MG PO .ZPACK DIRECTED, #6 TAB TAKE 500 MG (2 TABS) THE FIRST DAY THEN 250 MG (1 TAB) DAYS 2-5 Prov:ALCIDES SUN PA-C 11/02/18 Albuterol Sulfate* (Ventolin HFA*) 18 Gm Hfa.aer.ad, 2 PUFF INHALATION Q4H, #1 INHALER Prov:ALCIDES SUN PA-C 11/02/18 Benzonatate* (Benzonatate*) 200 Mg Capsule, 200 MG PO TID PRN for COUGH, #15 CAP Prov:ALCIDES SUN PA-C 11/02/18 Ferrous Sulfate* (Ferrous Sulfate*) 325 Mg Tabec, 325 MG PO BID, #60 TAB Prov:RISSA RAMIREZ MD 06/07/18 Tramadol Hcl* (Ultram*) 50 Mg Tablet, 50 MG PO Q6H PRN for PAIN for 14 Days, TAB Prov:RISSA RAMIREZ MD 06/07/18 Famotidine* (Pepcid*) 20 Mg Tablet, 20 MG PO BID for 7 Days, #14 TAB Prov:RISSA RAMIREZ MD 06/07/18 Acetaminophen* (Tylophen*) 500 Mg Capsule, 1 CAP PO Q6H PRN for PAIN AND OR ELEVATED TEMP, #20 CAP Prov:RISAS RAMIREZ MD 06/07/18 Ferrous Sulfate* (Ferrous Sulfate*) 325 Mg Tabec, 325 MG PO DAILY, #30 TAB Prov:JAMES DAWKINS 02/25/18 Tramadol HCl (Tramadol HCl) 50 Mg Tablet, 50 MG PO Q4 PRN for PAIN, #20 TAB Prov:JAMES DAWKINS 02/25/18 Docusate Sodium* (Colace*) 100 Mg Capsule, 100 MG PO TID, #30 CAP Prov:PIERRE HELLER [employer]RECTIONS CASEWORKER 02/10/17 Ferrous Sulfate* (Ferrous Sulfate*) 325 Mg Tabec, 325 MG PO BID, #60 TAB Prov:PIERRE HELLER NP 02/10/17 Famotidine* (Pepcid*) 20 Mg Tablet, 20 MG PO BID for 4 Days, TAB Prov:LEXIE OSEGUERA NP 07/03/15 Ferrous Sulfate (Iron) 325 Mg Capsr, 325 MG PO TID for 30 Days Prov:LEXIE OSEGUERA NP 07/03/15 Allergies Allergies: Coded Allergies: No Known Allergy (Unverified , 11/02/18) PMhx/Soc History of Surgery: No Anesthesia Reaction: No Hx Neurological Disorder: No Hx Respiratory Disorders: No Hx Cardiac Disorders: No Hx Psychiatric Problems: No Hx Miscellaneous Medical Probl: Yes (Dysfunctional Uterine Bleed,Anemia) Hx Alcohol Use: No Hx Substance Use: No Hx Tobacco Use: No FmHx Family History: No diabetes Physical Exam Vitals Vital Signs Date Temp Pulse Resp B/P (MAP) Pulse Ox O2 O2 Flow FiO2 Time Delivery Rate 11/02/18 97.9 82 18 123/63 100 12:47 (83) Physical Exam Const: No acute distress Head: Atraumatic Eyes: Normal Conjunctiva ENT: Normal External Ears, Nose and Mouth. Mild pharyngeal erythema. No tonsillar enlargement or exudates noted. Neck: Full range of motion. No meningismus. Resp: Mild inspiratory rhonchi noted to bilateral upper lung orellana. No crackles. No respiratory distress. Cardio: Regular rate and rhythm, no murmurs Skin: No petechiae or rashes Ext: No cyanosis, or edema Neur: Awake and alert Psych: Normal Mood and Affect Procedures/MDM 38-year-old female presenting with signs and symptoms most consistent with acute bronchitis with possible bacterial etiology. She will be treated as an outpatient with albuterol, azithromycin, and benzonatate. I doubt pneumonia, serious bacterial infection, sepsis, meningitis, or other emergencies. Patient advised to return to the department immediately for any new or worsening or conc erning symptoms. She understands and agrees with plan. Departure Diagnosis: Primary Impression: Acute bronchitis Condition: Fair Patient Instructions: Bronchitis, Antiobiotic Treatment (Adult) Referrals: [facility] YOU HAVE RECEIVED A MEDICAL SCREENING EXAM AND THE RESULTS INDICATE THAT YOU DO NOT HAVE A CONDITION THAT REQUIRES URGENT TREATMENT IN THE EMERGENCY DEPARTMENT. FURTHER EVALUATION AND TREATMENT OF YOUR CONDITION CAN WAIT UNTIL YOU ARE SEEN IN YOUR DOCTORS OFFICE WITHIN THE NEXT 1-2 DAYS. IT IS YOUR RESPONSIBILITY TO MAKE AN APPOINTMENT FOR FOLOW-UP CARE. IF YOU HAVE A PRIMARY DOCTOR --you should call your primary doctor and schedule an appointment IF YOU DO NOT HAVE A PRIMARY DOCTOR YOU CAN CALL OUR PHYSICIAN REFERRAL HOTLINE AT IF YOU CAN NOT AFFORD TO SEE A PHYSICIAN YOU CAN CHOSE FROM THE FOLLOWING [facility] [address] [facility] [address] [facility]. [facility] [address] [facility] [address] [facility] [address] [facility]. [facility]. [address] Additional Instructions: Llame al doctor MAANA y shiloh nicko JUSTEN PARA DENTRO DE 1-2 NOVAK.Dgale a la secretaria que nosotros le instruimos hacer esta justen.Avise o llame si connelly condicin se empeora antes de la justen. Regresa aqui si peor o no mejor. ALCIDES SUN PA-C Nov 02, 2018 17:04
== END 2018-11-02 15:26 | disposition home or self-care (01) ==
LOC: FTE 12:36
DX: J20.9 Acute bronchitis, unspecified (principal)
CPT/HCPCS: 99283

== ENCOUNTER 2018-12-02 20:03 | Emergency (ER) | payer SELFPAY ==
[~2018-12-02] VITALS: Ht 154.9 cm; Wt 66.2 kg
[~2018-12-02 20:03] MED LIST changes: +ALBU18HF INHALATION; +AZIT250T PO; +BENZ200C68 PO; +IBUP-1542 PO
[2018-12-02 20:04] VITALS: Ht 154.9 cm; Wt 66.2 kg
[2018-12-02] MEDS ORDERED: KETOROLAC 30 MG INJ IM STA (21:51)
--- NOTE | 2018-12-02 21:56 | ERD ---
ER Documentation Chief Complaint Chief Complaint W/C-BACK PAIN/INJ; PULLED MUSCLE AT WORK X1DAY HPI 38-year-old female with no reported past medical surgical history presents with complaint of lower back pain. States she was at work at [employer] when she was reaching for an item and felt like she pulled her back. She otherwise denies recent trauma trauma or fall, saddle anesthesia, urinary or bowel incontinence, lower extremity paresthesias or numbness. She has not taken any medications for her symptoms. At time of examination patient nontoxic-appearing able to take multiple steps with minimal discomfort in emergency room. ROS All systems reviewed and are negative except as per history of present illness. Medications Home Meds Active Scripts Acetaminophen* (Tylophen*) 500 Mg Capsule, 1 CAP PO Q6H PRN for PAIN AND OR ELEVATED TEMP, #20 CAP Prov:JACQUE SOUTH PA-C 12/02/18 Ibuprofen* (Motrin*) 600 Mg Tab, 600 MG PO Q6, #30 TAB Prov:JACQUE SOUTH PA-C 12/02/18 Azithromycin* (Zithromax*) 250 Mg Tablet, 250 MG PO .ZPACK DIRECTED, #6 TAB TAKE 500 MG (2 TABS) THE FIRST DAY THEN 250 MG (1 TAB) DAYS 2-5 Prov:ALCIDES SUN PA-C 11/02/18 Albuterol Sulfate* (Ventolin HFA*) 18 Gm Hfa.aer.ad, 2 PUFF INHALATION Q4H, #1 INHALER Prov:ALCIDES SUN PA-C 11/02/18 Benzonatate* (Benzonatate*) 200 Mg Capsule, 200 MG PO TID PRN for COUGH, #15 CAP Prov:ALCIDES SUN PA-C 11/02/18 Ferrous Sulfate* (Ferrous Sulfate*) 325 Mg Tabec, 325 MG PO BID, #60 TAB Prov:RISSA RAMIREZ MD 06/07/18 Tramadol Hcl* (Ultram*) 50 Mg Tablet, 50 MG PO Q6H PRN for PAIN for 14 Days, TAB Prov:RISSA RAMIREZ MD 06/07/18 Famotidine* (Pepcid*) 20 Mg Tablet, 20 MG PO BID for 7 Days, #14 TAB Prov:RISSA RAMIREZ MD 06/07/18 Acetaminophen* (Tylophen*) 500 Mg Capsule, 1 CAP PO Q6H PRN for PAIN AND OR ELEVATED TEMP, #20 CAP Prov:RISSA RAMIREZ MD 06/07/18 Ferrous Sulfate* (Ferrous Sulfate*) 325 Mg Tabec, 325 MG PO DAILY, #30 TAB Prov:JAMES DAWKINS C 02/25/18 Tramadol HCl (Tramadol HCl) 50 Mg Tablet, 50 MG PO Q4 PRN for PAIN, #20 TAB Prov:MARIZAJAMES C 02/25/18 Docusate Sodium* (Colace*) 100 Mg Capsule, 100 MG PO TID, #30 CAP Prov:PIERRE HELLER NP 02/10/17 Ferrous Sulfate* (Ferrous Sulfate*) 325 Mg Tabec, 325 MG PO BID, #60 TAB Prov:PIERRE HELLER NP 02/10/17 Famotidine* (Pepcid*) 20 Mg Tablet, 20 MG PO BID for 4 Days, TAB Prov:LEXIE OSEGUERA NP 07/03/15 Ferrous Sulfate (Iron) 325 Mg Capsr, 325 MG PO TID for 30 Days Prov:LEXIE OSEGUERA NP 07/03/15 Allergies Allergies: Coded Allergies: No Known Allergy (Unverified , 11/02/18) PMhx/Soc Medical and Surgical Hx: pt denies Surgical Hx History of Surgery: No Anesthesia Reaction: No Hx Neurological Disorder: No Hx Respiratory Disorders: No Hx Cardiac Disorders: No Hx Psychiatric Problems: No Hx Miscellaneous Medical Probl: Yes (Dysfunctional Uterine Bleed,Anemia) Hx Alcohol Use: No Hx Substance Use: No Hx Tobacco Use: No Smoking Status: Never smoker FmHx Family History: No diabetes, No coronary disease, No other Physical Exam Vitals Vital Signs Date Temp Pulse Resp B/P (MAP) Pulse Ox O2 O2 Flow FiO2 Time Delivery Rate 12/02/18 99.0 89 19 119/77 100 20:04 (91) Physical Exam I have reviewed the triage vital signs. Const: Well nourished, well developed, appears stated age Eyes: PERRL, no conjunctival injection HENT: NCAT, Neck supple without meningismus CV: RRR, Warm, well-perfused extremities RESP: CTAB, Unlabored respiratory effort GI: soft, non-tender, non-distended, no masses MSK: No gross deformities appreciated, no midline tenderness, 5 out of 5 strength throughout the bilateral upper extremities and lower extremities, SI LT throughout, normal gait on ambulation Skin: Warm, dry. No rashes Neuro: grossly non focal Psych: Appropriate mood and affect. Results 24 hrs Laboratory Tests Test 12/02/18 21:38 POC Beta HCG, Qualitative NEGATIVE Current Medications Medications Dose Sig/Jorgito Start Time Status Last (Trade) Ordered Route PRN Stop Time Admin Dose Reason Admin Ketorolac 30 mg ONCE STAT 12/02/18 DC Tromethamine IM 21:51 (Toradol) 12/02/18 21:52 10 mg ONCE ONCE 12/02/18 Dexamethasone IM 22:00 (Decadron) 12/02/18 22:01 Procedures/MDM 38-year-old female presents with back pain. Low suspicion for acute cord compression or cauda equina at this time, given presentation and symptoms, including epidural abscess or hematoma. Patient has no history of malignancy, active or distant history. Patient has no unexplained weight loss. No recent fevers, rigors, malaise, or recent infection. No history of IVDU or skin- popping. Patient does not have any history concerning for saddle anesthesia/perianal sensory loss or complaining of decreased rectal tone. Patient does not have urinary retention or inability to control urine from overflow. Patient has no tenderness overlying spinous process. Patient has no focal weakness on examination. Given exam and history, low suspicion for cord compression, cauda equina, epidural abscess/hematoma. Distally neurovascularly intact. Query likely musculoskeletal component. Discussed pain control,and follow up with PMD. Cautious return precautions discussed w/ full understanding DISPOSITION PLAN: We discussed follow up with the patient's primary care doctor within 24 to 48 hours. Patient counseled regarding my diagnostic impression and care plan. Prior to discharge all questions answered. Pt agrees with treatment plan and understands strict return precautions. Precautionary instructions provided including instructions to return to the ER if not improving or for any worsening or changing symptoms or concerns. Disclaimer: Inadvertent spelling and grammatical errors are likely due to EHR/dictation software use and do not reflect on the overall quality of patient care. Also, please note that the electronic time recorded on this note does not necessarily reflect the actual time of the patient encounter. Departure Diagnosis: Primary Impression: Back pain Condition: Stable Patient Instructions: Back Pain (Acute Or Chronic) Referrals: [facility] YOU HAVE RECEIVED A MEDICAL SCREENING EXAM AND THE RESULTS INDICATE THAT YOU DO NOT HAVE A CONDITION THAT REQUIRES URGENT TREATMENT IN THE EMERGENCY DEPARTMENT. FURTHER EVALUATION AND TREATMENT OF YOUR CONDITION CAN WAIT UNTIL YOU ARE SEEN IN YOUR DOCTORS OFFICE WITHIN THE NEXT 1-2 DAYS. IT IS YOUR RESPONSIBILITY TO MAKE AN APPOINTMENT FOR FOLOW-UP CARE. IF YOU HAVE A PRIMARY DOCTOR --you should call your primary doctor and schedule an appointment IF YOU DO NOT HAVE A PRIMARY DOCTOR YOU CAN CALL OUR PHYSICIAN REFERRAL HOTLINE AT IF YOU CAN NOT AFFORD TO SEE A PHYSICIAN YOU CAN CHOSE FROM THE FOLLOWING [facility] [address] [facility]. [facility] [address] [facility] [address] [facility] [address] [facility] [facility] [address] [facility] [facility] [address] Additional Instructions: Call your primary care doctor TOMORROW for an appointment during the next 2-3 days.See the doctor sooner or return here if your condition worsens before your appointment time. JACQUE SOUTH PA-C Dec 02, 2018 21:56
[2018-12-02] MEDS ORDERED: DEXAMETHASONE 10 MG/ML 1 ML INJ IM ONE (22:00)
[2018-12-02 22:36] VITALS: BP 111/59; PULSE 73; RESP 16
== END 2018-12-02 22:37 | disposition home or self-care (01) ==
LOC: FTE 20:03
DX: M54.5 Low back pain (principal)
CPT/HCPCS: 81025; 96372; 99284; J1100; J1885